=== PATIENT | male | born 1980 | race Caucasian/White ===

== ENCOUNTER 2020-06-09 17:43 | Emergency (ER) | payer BC, SELFPAY ==
[2020-06-09] VITALS (9 sets, daily range): BP systolic 115–133; BP diastolic 78–97; PULSE 68–96; RESP 12–20; TEMP 36.7–36.8; O2SAT 94–98; BMI 29.5
--- NOTE | 2020-06-09 18:02 | ECG_ITS ---
APPROVED REPORT Exam: Resting ECG HR:77 bpm ECG Measurements Heart Rate 77 AXES AL 150 P 67 QRSd 86 QRS 61 QT 374 T 42 QTc 423 Conclusion Normal sinus rhythm Normal ECG Electronically signed by : Zachary Monteiro, 06/14/2020 07:38:44
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
--- NOTE | 2020-06-09 19:00 | PC.NURSE ---
call placed to dispatch. 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 [phone].
--- NOTE | 2020-06-09 19:00 | PC.NURSE ---
pt report received from miguel vu. pt is sitting in the bed upright, eyes open. no complaints. metal dealer at bedside for 1-on-1 obs
--- NOTE | 2020-06-09 19:12 | HMH.EDGENADL ---
ED Disposition Clinical Impression: Suicidal ideation Disposition: Still a Patient Condition on Discharge: Fair Referrals: PCP,No [Primary Care Provider] - Time of Disposition: 20:29 - Critical Care Critical Care Time: No Attestation: On 06/09/20, the high probability of a clinically significant, sudden or life threatening deterioration of the following system(s) required my full and direct attention, intervention and personal management. The time I documented below is in addition to time spent performing reported procedures but includes the following listed in this critical care notation. Medical Decision Making - Medical Records Medical records reviewed: Yes: I reviewed the patient's medical records. - Yonathan Inquiry Pt receiving controlled substance: No Vital Signs: 06/09/20 18:09 06/09/20 18:59 06/09/20 19:29 Temperature 98.3 F Temperature Source Oral Pulse Rate [Right Radial] 79 96 H 77 Respiratory Rate 20 12 16 Blood Pressure [Right Arm] 126/85 115/81 119/78 Blood Pressure Mean [Right Arm] 98 92 91 Blood Pressure Source [Right Arm] Automatic Cuff Manual Cuff/ Auscultation Manual Cuff/ Auscultation Blood Pressure Position [Right Arm] Sitting Supine Supine 02 Sat by Pulse Oximetry 96 96 96 Oxygen Delivery Method Room Air Room Air Room Air 06/09/20 19:30 06/09/20 19:59 Temperature Temperature Source Pulse Rate [Right Radial] 70 68 Respiratory Rate 15 13 Blood Pressure [Right Arm] 119/78 129/88 Blood Pressure Mean [Right Arm] 91 101 Blood Pressure Source [Right Arm] Automatic Cuff Manual Cuff/ Auscultation Blood Pressure Position [Right Arm] Sitting Supine 02 Sat by Pulse Oximetry 94 L 97 Oxygen Delivery Method Room Air Room Air - Lab Data Lab Results 06/09/20 19:30: WBC 12.0 H, RBC 5.09, Hgb 16.2, Hct 48.8, MCV 95.9 H, MCH 31.9 H, MCHC 33.2, RDW 13.0, Plt Count 215, MPV 9.0, Neut % (Auto) 61.3, Lymph % (Auto) 30.7, [place] % (Auto) 5.9, Eos % (Auto) 1.5, Baso % (Auto) 0.5, Neut # (Auto) 7.4, Lymph # (Auto) 3.7, [place] # (Auto) 0.7, Eos # (Auto) 0.2, Baso # (Auto) 0.1 06/09/20 19:30: Sodium 138, Potassium 4.5, Chloride 102, Carbon Dioxide 27, Anion Gap 13.5, BUN 16, Creatinine 1.10, Estimated Creat Clear 133, Estimated GFR 75, Est GFR ( Amer) 90, Glucose 99, Calcium 10.0, Total Bilirubin 0.7, AST 37, ALT 35, Alkaline Phosphatase 91, Troponin I < 0.01, Total Protein 7.5, Albumin 4.5, Globulin 3.0, Albumin/Globulin Ratio 1.5, Salicylates < 1.0 L, Acetaminophen < 10 L 06/09/20 19:30: Plasma/Serum Alcohol < 10 06/09/20 19:40: Urine Color Dark yellow, Urine Appearance Clear, Urine pH 6.0, Ur Specific [place] >= 1.030, Urine Protein Negative, Urine Glucose (UA) Negative, Urine Ketones 1+, Urine Blood Negative, Urine Nitrate Negative, Urine Bilirubin Negative, Urine Urobilinogen 0.2, Ur Leukocyte Esterase Negative, Urine WBC 3-5, Urine Bacteria 1+, Hyaline Casts 3-5 06/09/20 19:40: Urine Opiates Screen Negative, Urine Methadone Screen Negative, Ur Barbituates Screen Negative, Ur Phencyclidine Scrn Negative, Ur Amphetamines Screen Negative, U Benzodiazepines Scrn Negative, Urine Cocaine Screen Negative, U Marijuana (THC) Screen Positive H Result diagrams: 06/09/20 19:30 06/09/20 19:30 Orders (Tests/Meds): ORDERS Category Date Time Status Troponin I Q3H Lab 06/09/20 22:15 Ordered Troponin I Q3H Lab 06/10/20 01:15 Ordered Medical Decision Narrative: In summary this is a 39-year-old male presenting to the emergency department with suicidal ideation. Patient is clinically stable on arrival. Vital signs within normal limits. He participates in history and examination. Will obtain screening laboratory work to assess for delirium. Will obtain toxicology work-up. Laboratory results are reassuring. UDS positive for marijuana. No other illicit drugs. Patient placed on a 72-hour hold for suicidal ideation. He will be transferred to a mental health facility, plan of care at time o
--- NOTE | 2020-06-09 19:26 | PC.NURSE ---
received report from Dr. Moran on pt
[2020-06-09 19:54] LABS: Amphetamine/Metha Screen,Urine Negative ng/ml (<1000); Barbiturates Screen,Urine Negative ng/ml (<200); Benzodiazepines Screen,Urine Negative ng/ml (<200); Cocaine Screen,Urine Negative ng/ml (<300); Methadone Screen,Urine Negative ng/ml (<300); Opiate Screen,Urine Negative ng/ml (<300); Phencyclidine Screen,Urine Negative ng/ml (<25)
[2020-06-09 19:55] LABS: Cannabinoid Screen,Urine Positive ng/ml (<50)
[2020-06-09 19:55] LABS: Basophils # 0.1 K/mm3 (0-0.2); Basophils % 0.5 % (0.1-2.0); Eosinophils # 0.2 K/mm3 (0.0-0.4); Eosinophils % 1.5 % (0.1-12.0); Hematocrit 48.8 % (42.0-52.0); Hemoglobin 16.2 g/dL (14.1-18.0); Lymphocytes # 3.7 K/mm3 (0.7-4.5); Lymphocytes % 30.7 % (10-50); Mean Corpuscular HGB Conc 33.2 g/dL (31.8-35.4); Mean Corpuscular Hemoglobin 31.9 pg (27.0-31.2); Mean Corpuscular Volume 95.9 fl (80-94); Monocytes # 0.7 K/mm3 (0.1-1.0); Monocytes % 5.9 % (1.7-9.3); Neutrophils # 7.4 K/mm3 (1.8-7.8); Neutrophils % 61.3 % (37.0-80.0); Platelet Count 215 K/mm3 (142-424); Red Blood Count 5.09 M/mm3 (4.60-6.20)
[2020-06-09 19:57] LABS: Appearance,Urine CLEAR (Clear); Color,Urine Dark Yellow (Yellow); Microscopic, Urine URINE MICROSCOPIC (MICROSCOPIC)
[2020-06-09 19:58] LABS: Bilirubin,Urine Negative (Negative); Blood, Urine Negative (Negative); Glucose,Urine (UA) Negative (Negative); Ketones,Urine 1+ (Negative); Leukocyte Esterase,Urine Negative (Negative); Nitrate,Urine Negative (Negative); Protein,Urine Negative (Negative); Specific Gravity, Urine >= 1.030 (1.005-1.030); Urobilinogen,Urine 0.2 EU/dl (0.2)
[2020-06-09 19:59] LABS: Bacteria,Urine 1+ /lpf
[2020-06-09 20:04] LABS: Chloride 102 mmol/L (98-107)
[2020-06-09 20:05] LABS: Potassium 4.5 mmoL/L (3.5-5.1); Sodium 138 mmol/L (136-145)
[2020-06-09 20:07] LABS: Alanine Aminotransferase 35 U/L (12-78); Albumin Level 4.5 g/dl (3.5-5.0); Albumin/Globulin Ratio 1.5 (1.1-1.8); Alkaline Phosphatase 91 U/L (38-126); Anion Gap 13.5 mEq/L (5-15); Aspartate Amino Transferase 37 U/L (17-59); Bilirubin,Total 0.7 mg/dl (0.2-1.3); Blood Urea Nitrogen 16 mg/dl (9-20); Carbon Dioxide 27 mmol/L (22.0-30.0); Creatinine Clearance Estimated 133 mL/min (50-200); Estimated Glomerular Filt Rate 75 ml/min (>60); GFR (African American) 90 ML/MIN (>60); Glucose 99 mg/dl (74-100); Total Protein,Serum 7.5 g/dl (6.3-8.2)
[2020-06-09 20:13] LABS: Acetaminophen < 10 ug/ml (10-30); Ethyl Alcohol < 10 mg/dl (0-10); Salicylate < 1.0 mg/dL (2.0-20.0)
--- NOTE | 2020-06-09 20:13 | PC.NURSE ---
Maria T called dispatch for update on pt status
[2020-06-09 20:23] LABS: Troponin I < 0.01 ng/ml (0.00-0.034)
--- NOTE | 2020-06-09 21:16 | PC.NURSE ---
spoke with dispatch who stated they just completed the pts paperwork and that the officers would be on the way to pick him up.
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
--- NOTE | 2020-06-09 22:01 | PC.NURSE ---
patient released to custody of [employer] officer traci. all belongings sent with patient
== END 2020-06-09 21:59 ==
PROVIDERS: Emergency Provider Emergency Medicine
DX: R45.851 Suicidal ideations (principal); F12.10 Cannabis abuse, uncomplicated
CPT/HCPCS: 80053; 80305; 80329; 81001; 84484; 85025; 93005; 99284

== ENCOUNTER 2025-04-28 10:44 | Outpatient (CLI) | payer MEDICAID, SELFPAY ==
--- NOTE | 2025-04-28 10:47 | US_ITS ---
FINAL REPORT TECHNIQUE: Sonographic images of the abdomen were obtained in all four quadrants. CLINICAL HISTORY: ABD PAIN FINDINGS: LIVER: Fatty infiltrated. No focal hepatic lesion. Portal vein is patent with normal directional flow. GALLBLADDER: No gallstones. No pericholecystic fluid collection or gallbladder wall thickening. The common duct measures 3 mm. This is within normal limits for age. PANCREAS: Unremarkable. RIGHT KIDNEY: 12.0 cm. No hydronephrosis, mass or stone. LEFT KIDNEY: 12.0 cm. No hydronephrosis, mass or stone. SPLEEN: 10.2 cm. No focal splenic lesion. AORTA/IVC: No abdominal aortic aneurysm. Visualized IVC within normal limits. OTHER: No ascites. There may be a small fat containing umbilical hernia. IMPRESSION: Fatty liver. Possible small fat containing umbilical hernia. Reviewed, Interpreted and Dictated by Eva Henley MD Transcribed by Verenice Harvey Authenticated and [facility]
== END 2025-04-28 23:59 | disposition home or self-care (01) ==
LOC: RAD 10:45
PROVIDERS: PCP Nurse Practitioner Family; Visit Provider Nurse Practitioner Family
DX: K76.0 Fatty (change of) liver, not elsewhere classified (principal); R93.5 Abnormal findings on diagnostic imaging of other abdominal regions, including retroperitoneum; R10.9 Unspecified abdominal pain
CPT/HCPCS: 76700